=== PATIENT | female | born 1955 | race African-American/Black ===

== ENCOUNTER 2016-12-20 09:21 | Emergency (ER) | payer BC ==
[~2016-12-20 09:21] MED LIST: EXCEDRIN EXTRA1 TAB PO; HYDROCODON-ACE1 EAC7 PO; PERCOCET 5-3251 TAB PO; ROBAXIN500 MG PO
== END 2016-12-20 11:45 | disposition home or self-care (01) ==
LOC: CED 09:21 → CFTX 09:21
DX: I10 Essential (primary) hypertension (principal); Z98.51 Tubal ligation status; M54.41 Lumbago with sciatica, right side; S39.012A Strain of muscle, fascia and tendon of lower back, initial encounter; X58.XXXA Exposure to other specified factors, initial encounter; Y92.9 Unspecified place or not applicable
CPT/HCPCS: 96372; 99283; J1885